=== PATIENT | male | born 1960 | race Caucasian/White ===

== ENCOUNTER → 2019-07-18 | Day surgery (SDC) | payer OTHER ==
[~2019-07-18] VITALS: Ht 177.8 cm; Wt 128.8 kg
[~2019-07-18] MED LIST: ADVAIR 250/501 EA INH; ALPHAGAN-P 0.2%5 ML OU; ALPRAZOLAM0.25 M2 PO; CARTIA XT240 MG PO; DILTIAZEM HCL240 MG PO; ELIQUIS5 M1 PO; FISH OIL 1,0001 EAC4 PO; FUROSEMIDE20 M1 PO; HYDROCHLOROTHIA25 M1 PO; K-TAB10 MEQ PO; LATANOPROST2.5 ML OU; LISINOPRIL5 MG PO; LUMIGAN50 DRP OPH; MUCINEX ER600 MG PO; MULTIVITAMINS1 EAC5 PO; OXYGEN NAS; PERFOROMIS20 MCG/2 M INH; PREDNISONE10 MG PO; PREDNISONE5 MG PO; PULMICORT RESP0.5 MG INH; SINGULAIR10 M1 PO; SPIRIVA18 MCG PO; VENTOLIN 02.5 MG/3 M INH
[2019-07-18 06:40] VITALS: BP 98/79
[2019-07-18 08:15] VITALS: BP 143/67
[2019-07-18 08:30] VITALS: BP 137/75
[2019-07-18 08:45] VITALS: BP 129/60
== END | disposition home or self-care (01) ==
LOC: SDC 07-13 08:45
DX: H25.811 Combined forms of age-related cataract, right eye (principal); I11.0 Hypertensive heart disease with heart failure; I50.9 Heart failure, unspecified; K21.9 Gastro-esophageal reflux disease without esophagitis; F41.9 Anxiety disorder, unspecified; F32.9 Major depressive disorder, single episode, unspecified; J43.9 Emphysema, unspecified; I48.91 Unspecified atrial fibrillation; Z79.899 Other long term (current) drug therapy